=== PATIENT | male | born 1965 | race Caucasian/White ===

== ENCOUNTER 2016-03-28 12:05 | Emergency (ER) | payer BC ==
[~2016-03-28] VITALS: Ht 175.3 cm; Wt 75.0 kg
[2016-03-28 12:08] VITALS: BP 143/94; PULSE 84; RESP 16; TEMP 97.8; O2SAT 96
[2016-03-28 12:48] LABS: BLOOD, URINE NEG (NEG); GLUCOSE,URINE NEG (NEG); KETONE, URINE 10 mg/dL (NEG); MUCUS URINE FEW /lpf (OCC); NITRITE,URINE NEG (NEG); PH, URINE 6.5 (5.0-8.5); URINE COLOR YELLOW (YELLW/STRAW)
[2016-03-28 12:50] LABS: COMMENT (UR) CULT NOT INDICATED; CULTURE IF INDICATED CULT NOT INDICATED
[2016-03-28 14:42] VITALS: BP 182/109; PULSE 69; RESP 17; O2SAT 98
--- NOTE | 2016-03-28 14:44 | RADRPT ---
EXAM DATE/TIME: 03/28/2016 14:22 [place] COMPARISON: No previous studies available for comparison. INDICATIONS : Bilateral flank pain. Dysuria for three days. ORAL CONTRAST: No oral contrast ingested. RADIATION DOSE: 6.99 CTDIvol (mGy) MEDICAL HISTORY : Carcinoma, prostate. SURGICAL HISTORY : Fusion, lumbar. ENCOUNTER: Initial ACUITY: 3 days PAIN SCALE: 4/10 LOCATION: Bilateral flank TECHNIQUE: Volumetric scanning of the abdomen and pelvis was performed. Using automated exposure control and ad justment of the mA and/or kV according to patient size, radiation dose was kept as low as reasonably achievable to obtain optimal diagnostic quality images. FINDINGS: LOWER LUNGS: There is a 12 mm right middle lobe nodule and 10 mm left lower lobe pulmonary nodule. LIVER: Homogeneous density without lesion. There is no dilation of the biliary tree. No calcified gallston es. SPLEEN: Normal size without lesion. PANCREAS: Within normal limits. KIDNEYS: Normal in size and shape. There is no mass or hydronephrosis. There is a 2 mm nonobstructing stone i n the right lower pole kidney. ADRENAL GLANDS: Within normal limits. VASCULAR: There is no aortic aneurysm. There is mild atherosclerotic disease. BOWEL/MESENTERY: The stomach, small bowel, and colon demonstrate no acute abnormality. There is no free intraperitone al air or fluid. ABDOMINAL WALL: Within normal limits. RETROPERITONEUM: There is no lymphadenopathy. BLADDER: No wall thickening or mass. REPRODUCTIVE: Within normal limits. INGUINAL: There is no lymphadenopathy or hernia. MUSCULOSKELETAL: There is posterior spinal hardware at L3-L5. The L4 level appears fractured and compressed. CONCLUSION: 1. No acute finding is identified within the abdomen or pelvis. There is a 2 mm nonobstructing right renal stone. 2. There are pulmonary nodules at both lung bases measuring up to 12 mm. Suggest correlation with francesca or imaging studies to evaluate for chronicity. If none are available recommend outpatient chest CT fo r further evaluation. 3. L3-L5 lumbar spine surgery with compression fracture of L4. Robert Johnson MD on March 28, 2016 at 14:39 Board Certified Radiologist. This report was verified electronically.
[2016-03-28 14:57] LABS: AUTOMATED NEUTROPHIL # 7.2 TH/MM3 (1.8-7.7); BASOPHIL # 0.1 TH/MM3 (0-0.2); BASOPHIL % 1.1 % (0.0-2.0); EOSINOPHIL # 0.1 TH/MM3 (0-0.4); EOSINOPHIL % 0.6 % (0.0-4.0); HEMATOCRIT 52.8 % (39.0-51.0); HEMO FLAGS DIFF FINAL; LYMPH % 11.2 % (9.0-44.0); MEAN CORPUSCULAR HEMOGLOBIN 26.3 PG (27.0-34.0); MEAN CORPUSCULAR HGB CONC 31.3 % (32.0-36.0); MONO % 9.4 % (0.0-8.0); NEUT % 77.7 % (16.0-70.0); PLATELET COUNT 331 TH/MM3 (150-450); RED BLOOD COUNT 6.29 MIL/MM3 (4.50-5.90); RED CELL DISTRIBUTION WIDTH 19.6 % (11.6-17.2); WHITE BLOOD COUNT 9.3 TH/MM3 (4.0-11.0)
--- NOTE | 2016-03-28 15:01 | PD ---
HPI Chief Complaint: Complaint Time Seen by Provider: 14:09 Travel History International Travel<30 days: No Contact w/Intl Traveler<30days: No Traveled to known affect area: No History of Present Illness HPI 50 y/o male presents with difficulty getting urine out since early this morning he's only had a small amount. He is also having pain to his back and has history of kidney stone that he's worried about. He states this morning when he really tried to push the urine out he had an episode or 2 of nonbloody emesis. Quality is pressure. Severity is only getting out a couple drops. Duration is since early this morning. PFSH Past Medical History Cancer: Yes (PROSTATE) Chemotherapy: Yes Diverticulitis: Yes Radiation Therapy: Yes Tetanus Vaccination: < 5 Years Influenza Vaccination: No Past Surgical History Abdominal Surgery: Yes (COLON RESECTION ) Genitourinary Surgery: Yes (HYDROCELE REPAIR) Neurologic Surgery: Yes (LUMBAR FUSION) Social History Alcohol Use: Yes (2 DRINKS/DAY) Tobacco Use: Yes (1 PPD) Substance Use: Yes (MARIJUANA ) Allergies-Medications (Allergen,Severity, Reaction): Coded Allergies: No Known Allergies (Unverified , 03/28/16) Reported Meds & Prescriptions Reported Meds & Active Scripts Active Reported Oxycodone ER (Oxycodone HCl) 40 Mg Tab 40 Mg PO Q8HR Oxycodone (Oxycodone HCl) 15 Mg Tab 15 Mg PO Q12HR PRN Viactiv (Calcium-Vitamins D & K) 500-500-40 Mg-Unit-Mcg Chew 1 Tab PO DAILY Omeprazole 40 Mg Cap 40 Mg PO DAILY Gabapentin 300 Mg Cap 300 Mg PO TID Bicalutamide 50 Mg Tab 50 Mg PO DAILY Hazardous agent; use appropriate precautions for handling & disposal. Review of Systems Except as stated in HPI: all other systems reviewed are Neg Physical Exam Narrative GENERAL: Well-nourished, well-developed patient. Patient removed back brace for exam SKIN: Warm and dry. HEAD: Normocephalic and atraumatic. EYES: No injection or drainage. ENT: No nasal drainage noted. NECK: Supple, trachea midline. CARDIOVASCULAR: Regular rate and rhythm RESPIRATORY: No increased effort. No accessory muscle use. GASTROINTESTINAL: Abdomen soft, tender suprapubic area, nondistended. EXTREMITIES: No edema. BACK:no CVA tenderness. NEUROLOGICAL: Awake and alert. Motor and sensory grossly within normal limits. Normal speech. Data Data Last Documented VS Vital Signs Date Time Temp Pulse Resp B/P Pulse Ox O2 Delivery O2 Flow Rate FiO2 03/28/16 16:18 60 17 165/98 97 Room Air 03/28/16 12:08 97.8 Orders Urinalysis - C+S If Indicated (03/28/16 12:13) Complete Blood Count With Diff (03/28/16 14:14) Basic Metabolic Panel (Bmp) (03/28/16 14:14) Ct Abd/Pel W/O Iv Contrast (03/28/16 ) Iv Access Insert/Monitor (03/28/16 14:14) Oximetry (03/28/16 14:14) Urinary Catheter Insert/Apply (03/28/16 14:14) Ondansetron Inj (Zofran Inj) (03/28/16 15:15) Ketorolac Inj (Toradol Inj) (03/28/16 15:15) Labs Laboratory Tests Test 03/28/16 03/28/16 03/28/16 12:12 14:40 16:10 Urine Color YELLOW Urine Turbidity HAZY Urine pH 6.5 Urine Specific Sandy 1.015 Urine Protein TRACE mg/dL Urine Glucose (UA) NEG mg/dL Urine Ketones 10 mg/dL Urine Occult Blood NEG Urine Nitrite NEG Urine Bilirubin NEG Urine Urobilinogen 2.0 MG/DL Urine Leukocyte Esterase NEG Urine RBC 1 /hpf Urine WBC 4 /hpf Urine Amorphous Sediment RARE Urine Mucus FEW /lpf Microscopic Urinalysis Comment CULT NOT INDICATED White Blood Count 9.3 TH/MM3 Red Blood Count 6.29 MIL/MM3 Hemoglobin 16.5 GM/DL Hematocrit 52.8 % Mean Corpuscular Volume 84.0 FL Mean Corpuscular Hemoglobin 26.3 PG Mean Corpuscular Hemoglobin 31.3 % Concent Red Cell Distribution Width 19.6 % Platelet Count 331 TH/MM3 Mean Platelet Volume 7.9 FL Neutrophils (%) (Auto) 77.7 % Lymphocytes (%) (Auto) 11.2 % Monocytes (%) (Auto) 9.4 % Eosinophils (%) (Auto) 0.6 % Basophils (%) (Auto) 1.1 % Neutrophils # (Auto) 7.2 TH/MM3 Lymphocytes # (Auto) 1.0 TH/MM3 Monocytes # (Auto) 0.9 TH/MM3 Eosinophils # (Auto) 0.1 TH/MM3 Basophils # (Auto) 0.1 TH/MM3 CBC Comment DIFF FINAL Differential Comment Sodium Level 143 MEQ/L Potassium Level 4.0 MEQ/L Chloride Level 110 MEQ/L Carbon Dioxide Level 24.0 MEQ/L Anion Gap 9 MEQ/L Blood Urea Nitrogen 9 MG/DL Creatinine 0.55 MG/DL Estimat Glomerular Filtration 158 ML/MIN Rate Random Glucose 94 MG/DL Calcium Level 9.2 MG/DL MDM Medical Decision Making Medical Screen Exam Complete: Yes Emergency Medical Condition: Yes Medical Record Reviewed: Yes (past history confirmed) Interpretation(s) CBC & BMP Diagram 03/28/16 14:40 03/28/16 16:10 Last 24 hours Impressions Abdomen/Pelvis CT 03/28/16 0000 Signed Impressions: Service Date/Time: Monday, March 28, 2016 14:22 - CONCLUSION: 1. No acute finding is identified within the abdomen or pelvis. There is a 2 mm nonobstructing right renal stone. 2. There are pulmonary nodules at both lung bases measuring up to 12 mm. Suggest correlation with prior imaging studies to evaluate for chronicity. If none are available recommend outpatient chest CT for further evaluation. 3. L3-L5 lumbar spine surgery with compression fracture of L4. Robert Johnson MD Differential Diagnosis Musculoskeletal, stone, infection, retention, renal failure Narrative Course Will check blood work, urinalysis, CT scan and dose with pain medication and reevaluate Patient with good urine output with Smith catheter. Will [address] [place] bag. Urine shows no signs of infection. CT without stone. Patient denies any new complaints and states that they are feeling better. Patient happy with care, all questions answered. Patient knows that follow up is incumbent on them and to return to the emergency room immediately if new or worsening symptoms develop. Patient given strict return precautions, vitals reviewed and are normal , agrees to further workup as an outpatient. Diagnosis Primary Impression: Urinary retention Additional Impressions: Pulmonary nodule Back pain Qualified Code: M54.9 - Back pain, unspecified back location, unspecified back pain laterality, unspecified chronicity Patient Instructions: General Instructions Additional Instructions: return as needed, follow with urology this week, follow with primary Med/Other Pt SpecificInfo: No Change to Meds Disposition: 01 DISCHARGE HOME Condition: Stable Karla Byers MD Mar 28, 2016 15:01
[2016-03-28] MEDS ORDERED: ONDANSETRON HCL 4 MG/2 ML VIAL IVP ONE (15:15)
[2016-03-28] MEDS ORDERED: KETOROLAC TROMETHAMINE 30 MG/ML (IVP) VIAL IV PUSH ONE (15:15)
[2016-03-28] MEDS ORDERED: GABA300C5 PO (15:55)
[2016-03-28] MEDS ORDERED: OMEP40CA2 PO (15:55)
[2016-03-28] MEDS ORDERED: OXYC15TA PO (15:55)
[2016-03-28] MEDS ORDERED: BICA50TA PO (15:55)
[2016-03-28] MEDS ORDERED: OXYC-406 PO (15:55)
[2016-03-28] MEDS ORDERED: CALC8.5C PO (15:55)
[2016-03-28 16:18] VITALS: BP 165/98; PULSE 60; RESP 17; O2SAT 97
[2016-03-28 17:47] VITALS: BP 163/97
== END 2016-03-28 17:48 | disposition home or self-care (01) ==
LOC: NEPC 12:05
DX: R33.9 Retention of urine, unspecified (principal); R91.1 Solitary pulmonary nodule; M54.9 Dorsalgia, unspecified
CPT/HCPCS: 51702; 74176; 80048; 81001; 85025; 96374; 96375; 99284; J1885; J2405